=== PATIENT | female | born 1990 | race African-American/Black ===

== ENCOUNTER 2017-06-10 13:59 | Emergency (ER) | payer OTHER ==
[2017-06-10 14:14] VITALS: BP 106/58
[2017-06-10] MEDS ORDERED: diphenhydrAMINE 50 MG/ML 1 ML VIAL IVP STA (14:26)
[2017-06-10] MEDS ORDERED: methylPREDNISolone SOD SUCCI 125 MG/2 ML VIAL IV STA (14:26)
[2017-06-10] MEDS ORDERED: FAMOTIDINE 20 MG/2 ML VIAL IV STA (14:26)
[2017-06-10] MEDS ORDERED: SODIUM CHLORIDE 0.9% 1,000 ML IV STA (14:27)
--- NOTE | 2017-06-10 14:28 | ED ---
General Adult HPI - General Chief complaint: ENT Stated complaint: Sore Throat Time Seen by Provider: 06/10/17 14:15 Source: patient, RN notes reviewed Mode of arrival: ambulatory Limitations: no limitations - History of Present Illness Initial comments: Patient is a 26-year-old female presenting to the emergency room today with a chief complaint of a sore throat over the last day. She states this started yesterday. Woke up this morning with a rash across her chest and upper extremity's. Patient also admits to some lip swelling to her upper lip. She states feels more full. Denies any tongue swelling. Denies any difficulty swallowing or breathing. Denies any other complaints or symptoms. Denies any other new contacts. Patient denies any recent fever, chills, shortness of breath , chest pain, back pain, abdominal pain, nausea or vomiting, numbness or tingling, dysuria or hematuria, constipation or diarrhea, headaches or visual changes, or any other complaints. - Related Data Previous Rx's Medication Instructions Recorded Famotidine [Pepcid] 20 mg PO BID #20 tablet 06/10/17 diphenhydrAMINE [Benadryl] 1 - 2 tab PO Q6HR PRN #30 capsule 06/10/17 predniSONE 50 mg PO DAILY #5 tab 06/10/17 Allergies Allergy/AdvReac Type Severity Reaction Status Date / Time No Known Allergies Allergy Verified 06/10/17 14:53 Review of Systems ROS Statement: Those systems with pertinent positive or pertinent negative responses have been documented in the HPI. ROS Other: All systems not noted in ROS Statement are negative. 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 Eye: Pupils are equal, round and reactive to light, extra-ocular movements are intact. No nystagmus. There is normal conjunctiva bilaterally. No signs of icterus. Ears, nose, mouth and throat: There are moist mucous membranes and no oral lesions. Increased redness to the posterior pharynx with positive exudate on the left. Uvula midline. Swallows without difficulty. Neck: The neck is supple, there is no tenderness or JVD. Cardiovascular: There is a regular rate and rhythm. No murmur, rub or gallop is appreciated. Respiratory: Lungs are clear to auscultation, respirations are non-labored, breath sounds are equal. No wheezes, stridor, rales, or rhonchi. Musculoskeletal: Normal ROM, no tenderness. Strength 5/5. Sensation intact. Pulses equal bilaterally 2+. Neurological: A&O x 3. CN II-XII intact, There are no obvious motor or sensory deficits. Coordination appears grossly intact. Speech is normal. Skin: Skin is warm and dry and no rashes or lesions are noted. Psychiatric: Cooperative, appropriate mood & affect, normal judgment. Limitations: no limitations Course Vital Signs 06/10/17 14:11 Temperature 98.9 F Pulse Rate 113 H Respiratory 16 Rate Blood Pressure 106/58 O2 Sat by Pulse 96 Oximetry Medical Decision Making - Medical Decision Making Patient reexamined at this time shows no signs of distress. She has been to feeling better after steroids, Pepcid, Benadryl here in emergency room. She states that the swelling to her lip is improved. States rash has gone away. Patient's strep and Monospot tests are negative. Patient at this time will be continued to be treated for ALLERGIC reaction continued on Pepcid, steroids, Benadryl. Advised follow-up the next 2 days return if any symptoms increase or worsen. Patient states understanding and is in agreement. - Lab Data Lab Results 06/10/17 06/10/17 Range/Units 14:20 14:41 Heterophile Antibody Negative (Negative) Group A Strep Rapid Negative (Negative) Disposition Clinical Impression: Allergic reaction, Acute pharyngitis Disposition: HOME SELF-CARE Condition: Good Instructions: General Allergic Reaction (ED) Additional Instructions: Please use medication as discussed. Please follow-up with family doctor in the next 2 days of symptoms have not improved. Please return to emergency room if the symptoms increase or worsen or for any other concerns. Prescriptions: diphenhydrAMINE [Benadryl] 1 - 2 tab PO Q6HR PRN #30 capsule PRN Reason: Allergic Reaction Famotidine [Pepcid] 20 mg PO BID #20 tablet predniSONE 50 mg PO DAILY #5 tab Referrals: Manuel David Jr, [Primary Care Provider] - 1-2 days Time of Disposition: 15:33
[2017-06-10 15:45] VITALS: PULSE 89; RESP 18; TEMP 98.3
== END 2017-06-10 15:47 | disposition home or self-care (01) ==
LOC: EC 13:59
DX: T78.40XA Allergy, unspecified, initial encounter (principal); J02.9 Acute pharyngitis, unspecified
CPT/HCPCS: 36415; 86308; 87081; 87430; 99283; 96374; 96375 ×2; 96361; J1200; J2930